=== PATIENT | female | born 1975 | race Caucasian/White ===

== ENCOUNTER 2016-07-13 21:10 | Emergency (ER) | payer OTHER ==
[2016-07-14] MEDS ORDERED: IPRATROPIUM/ALBUTEROL 0.5-2.5 MG/3 ML AMPUL NEB ONE (01:55)
[2016-07-14] MEDS ORDERED: PREDNISONE 20 MG TABLET PO ONE (01:55)
[2016-07-14] MEDS: ALBUTEROL SULFATE 0.083% NEB 2.5 MG/3 ML AMPUL NEB SCH ×2 (02:13→02:26)
[2016-07-14] MEDS ORDERED: HYDROCODONE/ACETAMINOPHEN 5-325 MG TABLET PO ONE (02:21)
--- NOTE | 2016-07-14 02:22 | ER Document Report ---
ED General - General Time seen by provider: 02:15 Mode of Arrival: Ambulatory Information source: Patient TRAVEL OUTSIDE OF THE [place] IN LAST 30 DAYS: No - HPI Onset: Other - See history of present illness Onset/Duration: Gradual Associated symptoms: Productive cough, Fever <RACHELLE MULLEN - Last Filed: 07/14/16 03:31> <LILLYGLENDY Flannery - Last Filed: 07/14/16 05:50> - General Stated Complaint: COUGH/DIFFICULTY BREATHING Notes: Patient is a 40-year-old female presented emergency department with cough and cold-like symptoms. Patient complains of having a cough and fever for the past 3 days. Patient states that tonight while pain in the ED patient has started having some clear sputum from her cough. Patient is a smoker and continues to smoke. Patient denies Any flu shot this year. Patient also has some chest wall tenderness that is exacerbated with her cough. Patient is allergic to penicillin. Patient also has a ventral hernia. Patient states that she has a recommendation from her PCP to follow-up with surgery for this hernia with [facility]. (RACHELLE MULLEN) - Related Data Allergies/Adverse Reactions: Penicillins Allergy (Verified 05/16/16 10:29) Past Medical History - General Information source: Patient, [facility] Records - Social History Smoking Status: Current Every Day Smoker Cigarette use (# per day): Yes Chew tobacco use (# tins/day): No Frequency of alcohol use: None Drug Abuse: None Family History: None Renal/ Medical History: Reports: Hx Ovarian Cysts Musculoskeltal Medical History: Reports Hx Musculoskeletal Trauma Past Surgical History: Reports: Hx Abdominal Surgery - hernia repair X 4, ABD ABSCESS, Hx Section - X2, Hx Herniorrhaphy - 4, Hx Hysterectomy - Partial, Hx Tubal Ligation - Immunizations Immunizations up to date: Yes Hx Diphtheria, Pertussis, Tetanus Vaccination: Yes <RACHELLE MULLEN - Last Filed: 07/14/16 03:31> Review of Systems - Review of Systems Constitutional: See HPI, Fever EENT: No symptoms reported Cardiovascular: No symptoms reported Respiratory: See HPI, Cough, Sputum Gastrointestinal: No symptoms reported Genitourinary: No symptoms reported Female Genitourinary: No symptoms reported Musculoskeletal: No symptoms reported Skin: No symptoms reported Hematologic/Lymphatic: No symptoms reported Neurological/Psychological: No symptoms reported -: Yes All other systems reviewed and negative <RACHELLE MULLEN - Last Filed: 07/14/16 03:31> Physical Exam - Vital signs Interpretation: Normal - General General appearance: Appears well, Alert In distress: Mild - HEENT Head: Normocephalic, Atraumatic Eyes: Normal Pupils: PERRL Mucous membranes: Normal - Respiratory Respiratory status: No respiratory distress Chest status: Tender - Left anterior chest wall and sternum chest wall tenderness to palpation Breath sounds: Wheezing - Inspiratory and expiratory wheezes Chest palpation: Normal - Cardiovascular Rhythm: Regular Heart sounds: Normal auscultation - Abdominal Inspection: Other - Ventral hernia Distension: No distension Bowel sounds: Normal Tenderness: Nontender Organomegaly: No organomegaly - Back Back: Normal, Nontender - Extremities General upper extremity: Normal inspection, Normal ROM, Normal strength General lower extremity: Normal inspection, Normal ROM, Normal strength. No: Edema - Neurological Neuro grossly intact: Yes Cognition: Normal Orientation: AAOx4 Jarrell Coma Scale Eye Opening: Spontaneous Tabitha Coma Scale Verbal: Oriented Jarrell Coma Scale Motor: Obeys Commands Jarrell Coma Scale Total: 15 Speech: Normal - Psychological Associated symptoms: Normal affect, Normal mood - Skin Skin Temperature: Warm Skin Moisture: Dry Skin Color: Normal <RACHELLE MULLEN - Last Filed: 07/14/16 03:31> Course - Laboratory Result Diagrams: 07/14/16 04:15 07/14/16 04:15 - Diagnostic Test Radiology reviewed: Image reviewed, Reports reviewed - Radiologist read the chest x-ray is enlarged heart with mild pulmonary vascular congestion, however the patient's BNP is 18. This suggests that this is all COPD and scarring. - EKG Interpretation by Tx EKG shows normal: Sinus rhythm, [place], Intervals. abnormal: QRS Complexes, ST-T Waves - Nonspecific diffuse T abnormalities Rate: Normal - 76 Rhythm: NSR [place]/QRS: LAHB/LAFB Voltage: Decreased voltage <GLENDY CARR - Last Filed: 07/14/16 05:50> - Vital Signs Vital signs: Temp Pulse Resp BP Pulse Ox 100.3 F 98 20 118/74 93 07/14/16 02:13 07/14/16 02:13 07/14/16 02:13 07/14/16 02:13 07/14/16 02:13 (RACHELLE MULLEN) (GLENDY CARR) - Laboratory Laboratory results interpreted by me: 07/14/16 07/14/16 04:15 04:15 Seg Neutrophils % 85.3 H Lymphocytes % 8.1 L Glucose 125 H AST 43 H Creatine Kinase 729 H (GLENDY CARR) Discharge <RACHELLE MULLEN - Last Filed: 07/14/16 03:31> <GLENDY CARR - Last Filed: 07/14/16 05:50> - Discharge Clinical Impression: Acute exacerbation of chronic obstructive pulmonary disease (COPD) Condition: Stable Disposition: HOME, SELF-CARE Additional Instructions: Chronic Obstructive Lung Disease: You have chronic obstructive lung disease (COPD). The symptoms come from emphysema (damage to small airways, with trapping of air in large sacks in the lung) and chronic bronchitis (repeated infection and damage to larger airways). The cause is almost always cigarette smoking, although dust exposure, asthma, and infections contribute. You should avoid fumes, dust, and smoke (especially tobacco smoke). Your condition will flare from time to time. There is no cure, but the symptoms can be treated. Bronchodilators (asthma medicine) are often helpful. Antibiotics help when infection is present. When shortness of breath is severe, we may prescribe cortisone medication. If medicine doesn't help enough, we can arrange for you to have an oxygen tank at home. Notify your doctor at once if sputum becomes thick, foul, or bloody, if you develop a fever or chest pain, or if your shortness of breath worsens. START THE PRESCRIBED MEDICATIONS ON MONDAY MORNING. USE THE INHALER 2 PUFFS EVERY 4 HOURS NEEDED FOR WHEEZING. DRINK PLENTY OF FLUIDS. REST. STOP SMOKING. FOLLOW UP WITH A LOCAL MEDICAL DOCTOR IF NOT IMPROVING. RETURN TO THE EMERGENCY ROOM IF ANY NEW OR WORSENING SYMPTOMS. Prescriptions: Azithromycin [Zithromax 250 mg Tablet] 250 mg PO DAILY #4 tablet Prednisone [Deltasone 10 mg Tablet] 10 mg PO ASDIR PRN #21 tablet PRN Reason: Scribe Attestation: 07/14/16 05:50 I personally performed the services described in the documentation, reviewed and edited the documentation which was dictated to the scribe in my presence, and it accurately records my words and actions. (GLENDY CARR) Scribe Documentation - Scribe Written by Scribe:: Rachelle Mullen (07/14/16 02:15) acting as scribe for :: Lilly <RACHELLE MULLEN - Last Filed: 07/14/16 03:31>
[2016-07-14 04:44] LABS: ABSOLUTE LYMPHOCYTES (AUTO) 0.7 10^3/uL (0.5-4.7); ABSOLUTE MONOCYTES (AUTO) 0.5 10^3/uL (0.1-1.4); ABSOLUTE NEUT (AUTO) 7.5 10^3/uL (1.7-8.2); BASOPHILS % (AUTO) 0.5 % (0-2); EOSINOPHILS % (AUTO) 0.2 % (0-6); HEMOGLOBIN 14.9 g/dL (12.0-15.5); HGB HCT DIFFERENCE -0.3; LYMPHOCYTES % (AUTO) 8.1 % (13-45); MEAN CORPUSCULAR HEMOGLOBIN 30.6 pg (27.0-33.4); MEAN CORPUSCULAR HGB CONC 33.1 g/dL (32.0-36.0); MEAN CORPUSCULAR VOLUME 92 fl (80-97); MONOCYTES % (AUTO) 5.9 % (3-13); RED BLOOD COUNT 4.87 10^6/uL (3.72-5.28); RED CELL DISTRIBUTION WIDTH 13.5 % (11.5-14.0); SEGMENTED NEUTROPHILS % (AUTO) 85.3 % (42-78); WHITE BLOOD COUNT 8.8 10^3/uL (4.0-10.5)
[2016-07-14 05:05] LABS: ALANINE AMINOTRANSFERASE 46 U/L (9-52); ALBUMIN 3.8 g/dL (3.5-5.0); ALKALINE PHOSPHATASE 98 U/L (38-126); ANION GAP 11 (5-19); ASPARTATE AMINO TRANSFERASE 43 U/L (14-36); BILIRUBIN,TOTAL 0.3 mg/dL (0.2-1.3); BLOOD UREA NITROGEN 8 mg/dL (7-20); CALCIUM 8.9 mg/dL (8.4-10.2); CARBON DIOXIDE 23 mmol/L (22-30); CHLORIDE 105 mmol/L (98-107); CREATINE KINASE 729 U/L (30-135); CREATININE RESULT 0.66 mg/dL (0.52-1.25); GLUCOSE 125 mg/dL (75-110); POTASSIUM 4.2 mmol/L (3.6-5.0); SODIUM 139.1 mmol/L (137-145); TOTAL PROTEIN 6.3 g/dL (6.3-8.2)
[2016-07-14 05:17] LABS: CREATINE KINASE MB 0.55 ng/mL (<4.55)
[2016-07-14 05:23] LABS: TROPONIN I < 0.012 ng/mL
[2016-07-14] MEDS ORDERED: AZITHROMYCIN 250 MG TABLET PO ONE (05:46)
[2016-07-14] MEDS ORDERED: ALBUTEROL SULFATE HFA (90 MCG/PUFF) 8 GM MDI (1 MDI/ER DISP) IH ONE (05:46)
[2016-07-14 06:14] VITALS: BP 126/70
--- NOTE | 2016-07-14 07:56 | EKG REPORT ---
SEVERITY:- ABNORMAL ECG - SINUS RHYTHM LEFT ANTERIOR FASCICULAR BLOCK LOW VOLTAGE IN FRONTAL LEADS NONSPECIFIC T ABNORMALITIES, DIFFUSE LEADS : Confirmed by: Ashley Go 14-Jul-2016 07:55:41
== END 2016-07-14 06:17 | disposition home or self-care (01) ==
LOC: ER 21:10
DX: J44.1 Chronic obstructive pulmonary disease with (acute) exacerbation (principal); R05 Cough; R06.02 Shortness of breath; F17.210 Nicotine dependence, cigarettes, uncomplicated
CPT/HCPCS: 93005; 94640 ×2; 99284; 36415; 82553; 82550; 85025; 80053; 84484; 83880; 71010; 93010; J7512; J3490; J7620

== ENCOUNTER → 2020-08-05 | Outpatient (CLI) | payer OTHER ==
--- NOTE | 2020-08-05 12:20 | RADIOLOGY REPORT (SQ) ---
EXAM DESCRIPTION: CT ABD/PELVIS WITH IV ORAL IMAGES COMPLETED DATE/TIME: 08/05/2020 7:53 am REASON FOR STUDY: VENTRAL HERNIA WITHOUT OBSTRUCTION OR GANGRENE K43.9 VENTRAL HERNIA WITHOUT OBSTR UCTION OR GANGRENE COMPARISON: 05/08/2016 TECHNIQUE: CT scan of the abdomen and pelvis performed using helical scanning technique with dynamic intravenous contrast injection. Oral contrast was also given. Images reviewed with lung, soft tissu e, and bone windows. Reconstructed coronal and sagittal MPR images reviewed. Delayed images for evalu ation of the urinary system also acquired. All images stored on PACS. All CT scanners at this facility use dose modulation, iterative reconstruction, and/or weight based d osing when appropriate to reduce radiation dose to as low as reasonably achievable (ALARA). [facility]: Dose Right [facility]: CareDose [facility]: Dose Right [facility]: Teradose 4D [facility]: [employer] Mobile CONTRAST TYPE AND DOSE: contrast/concentration: Isovue 350.00 mmol/ml; Total Contrast Delivered: 100 .0 ml; Total Saline Delivered: 40.0 ml RENAL FUNCTION: None required. The patient is less than 50 years old. RADIATION DOSE: CT Rad equipment meets quality standard of care and radiation dose reduction techniq ues were employed. CTDIvol: 15.2 - 15.5 mGy. DLP: 1709 mGy-cm.. LIMITATIONS: None. FINDINGS: LOWER CHEST: No basilar consolidation or suspicious nodule. LIVER: Normal size. No masses. No dilated ducts. SPLEEN: Normal size. No focal lesions. PANCREAS: Small hypodense structure near the pancreatic body/ tail junction which could reflect a sma ll cyst or interdigitation of fat. This appears similar prior examination. No acute abnormality or suspicious mass lesion. GALLBLADDER: No identified stones by CT criteria. No inflammatory changes to suggest cholecystitis. ADRENAL GLANDS: No significant masses or asymmetry. RIGHT KIDNEY AND URETER: No suspicious mass. Multiple parapelvic cysts. No significant calcificati ons. No hydronephrosis or hydroureter. LEFT KIDNEY AND URETER: No suspicious mass. Multiple parapelvic cysts. 4 mm nonobstructing calculu s interpolar left kidney. No hydronephrosis or hydroureter. AORTA AND VESSELS: No aneurysm. No dissection. Renal arteries, SMA, celiac without stenosis. RETROPERITONEUM: No retroperitoneal adenopathy, hemorrhage or masses. BOWEL AND PERITONEAL CAVITY: Large broad-based complex ventral hernia containing multiple loops of sm all bowel and colon. No this was present on prior examination. There is increase in a chronic appea ring fluid collection along the inferior and left aspect of the hernia sac this measures approximatel y 5.2 x 1.0 x 8.9 cm, previously approximately 6.0 x 2.4 x 4.6 cm. No bowel obstruction. No signifi cant bowel wall thickening. Some prominent lymph nodes in the right abdomen are probably reactive. APPENDIX: Normal. PELVIS: Status posthysterectomy. No adnexal mass. Urinary bladder is unremarkable. ABDOMINAL WALL: As above. BONES: No significant or acute findings. OTHER: No other significant finding. IMPRESSION: 1. Large complex ventral hernia containing multiple loops of small bowel and colon. Th ere is a chronic appearing fluid collection along the inferior and left aspect of the hernia which is slightly increased in size from prior. 2. No bowel obstruction. 3. Nonobstructing left renal calculus. TECHNICAL DOCUMENTATION: JOB ID: [id number] Quality ID # [id number]: Final reports with documentation of one or more dose reduction techniques (e.g., Au tomated exposure control, adjustment of the mA and/or kV according to patient size, use of iterative reconstruction technique) 2010 [employer]- All Rights Reserved Reading location - IP/workstation name: [email or web address]
== END ==
LOC: RAD 10:10
PROVIDERS: ATTEND Physician Assistant Medical
DX: K43.9 Ventral hernia without obstruction or gangrene (principal); N20.0 Calculus of kidney
CPT/HCPCS: 74177